=== PATIENT | male | born 1960 | race African-American/Black ===

== ENCOUNTER → 2017-04-17 15:22 | Outpatient (CLI) | payer MEDICARE ==
[2014-09-16 14:19] VITALS: BMI 21.1
[~2017-04-17 15:22] MED LIST: AMOXICILLIN500 M1 PO; BACLOFEN10 MG PO; BIAXIN 500 MG500 MG PO; COUMADIN10 MG PO; ELIQUIS2.5 MG PO; HYDROCHLOROTH12.5 M1 PO; HYDROCODONE-APA1 TAB PO; K-DUR20 MEQ PO; KLONOPIN1 MG PO; NORCO 10/325 TA1 TA1 PO; PERCOCET 10/3251 TA1 PO; PRADAXA150 MG PO; PROTONIX40 MG PO; REPREXAIN 10-21 EACH PO; SOMA350 MG PO; SYMBICORT 16010.2 GM INH; XANAX1 MG PO; ZESTORETIC 10/11 TAB PO
== END | disposition home or self-care (01) ==
LOC: D.MRI 04-10 11:00
DX: M25.562 Pain in left knee (principal)

== ENCOUNTER → 2017-04-25 16:23 | Outpatient (CLI) | payer MEDICARE ==
[2014-09-16 14:19] VITALS: BMI 21.1
== END | disposition home or self-care (01) ==
LOC: D.LABREF 16:23
DX: M87.9 Osteonecrosis, unspecified (principal); Z11.8 Encounter for screening for other infectious and parasitic diseases

== ENCOUNTER 2017-04-30 08:30 | Inpatient (IN) | payer MEDICARE ==
[~2017-04-30] VITALS: Ht 188 cm; Wt 75.0 kg
[~2017-04-30 08:30] MED LIST changes: -KLONOPIN1 MG PO
[2017-05-01 11:24] LABS: HEMATOCRIT 40.8 % (42.0-54.0); HEMOGLOBIN 13.8 g/dL (13.5-17.5); MCH 31.4 pg (26.0-34.0); MCHC 33.8 g/dL (31.0-37.0); MCV 92.7 fL (80.0-100.0); MEAN PLATELET VOLUME 10.7 fL (7.4-10.4); RDW 14.6 % (11.5-14.5); WBC 3.4 10x3/uL (4.8-10.8)
[2017-05-01 11:29] LABS: PLATELET COUNT 80 10x3/uL (130-400)
[2017-05-01 11:34] LABS: CALC OSMOLALITY 276 mosm/kg (275-300); CALCIUM 8.9 mg/dL (8.5-10.1); CARBON DIOXIDE 27.8 mmol/L (21.0-32.0); CHLORIDE - SERUM 105 mmol/L (98-107); SODIUM 140 mmol/L (136-145); UREA NITROGEN 7 mg/dL (7-18); eGFR NON AFRICAN AMERICAN 82 mL/min (90-120)
[2017-05-01 11:38] LABS: APTT 35.2 SECONDS (22.8-39.4); GLUCOSE 100 mg/dL (74-106); INR 1.15 (0.85-1.17); PROTIME 14.3 SECONDS (11.6-15.0)
[2017-05-01 12:15] LABS: APPEARANCE SLT CLOUDY (CLEAR); BACTERIA MANY /hpf (NONE SEEN); BILIRUBIN NEGATIVE (NEGATIVE); COLOR YELLOW (YELLOW); EPITHELIAL CELLS 0-5 /hpf (0-5); GLUCOSE 250 mg/dL (NEGATIVE); KETONE NEGATIVE (NEGATIVE); MUCUS <1+ /lpf (NONE SEEN); NITRITE POSITIVE (NEGATIVE); PROTEIN NEGATIVE (NEGATIVE); SPECIFIC GRAVITY 1.015 (1.005-1.020); UROBILINOGEN NORMAL (NORMAL); WHITE CELLS - URINE 0-5 /hpf (0-5)
[2017-05-01 12:36] LABS: EOSINOPHILS 1 % (0-7); LYMPHOCYTES 53 % (15-50); MONOCYTES 8 % (2-11); NEUTROPHILS 38 % (40-80); PLATELET ESTIMATE DECREASED
[2017-05-06] MEDS ORDERED: KLONOPIN1 MG PO (12:38)
[2017-05-06 12:44] VITALS: BP 109/66; BMI 21.2
[2017-05-06 13:30] LABS: APPEARANCE HAZY (CLEAR); BILIRUBIN NEGATIVE (NEGATIVE); COLOR DK YELLOW (YELLOW); GLUCOSE NEGATIVE (NEGATIVE); KETONE NEGATIVE (NEGATIVE); NITRITE NEGATIVE (NEGATIVE); PROTEIN NEGATIVE (NEGATIVE); UROBILINOGEN NORMAL (NORMAL)
[2017-05-06 13:31] LABS: WHITE CELLS - URINE 0-5 /hpf (0-5)
[2017-05-06 13:32] LABS: BACTERIA FEW /hpf (NONE SEEN); MUCUS >1+ /lpf (NONE SEEN); RED CELLS - URINE OCC /hpf (0-5)
[2017-05-06 19:20] VITALS: BP 162/96
--- NOTE | 2017-05-06 19:38 | NUR ---
RECIEVED PATIENT FROM RECOVERY. PATIENT IS AWAKE, ALERT AND ORIENTED X'S 4. RESPIRATIONS ARE EVEN AND UNLABORED ON ROOM AIR. NO SIGNS OF DISTRESS NOTED. DAUGHTER LEFT TO GO GET PATIENT SOMETHING TO EAT. BROUGHT PATIENT A WARM BLANKET PER HIS AND HIS DAUGHTERS REQUEST. PATIENT HAS CALL LIGHT IN HIS HAND. ASSESSED LEFT KNEE, DRESSING CLEAN, DRY AND INTACT. PALPATED LEFT PEDAL PULSE, +2. LEFT FOOT IS WARM AND DRY, CAPILLARY REFILL <3 SECONDS. HE DENIES OTHER NEEDS AT THIS TIME. BED IN LOWEST POSITION, BED RAILS UP X'S 2.
[2017-05-07 02:11] VITALS: Ht 188 cm; Wt 75.0 kg
[2017-05-07 04:00] VITALS: BP 126/73
[2017-05-07 07:10] VITALS: BP 147/87
[2017-05-07 07:48] LABS: HEMATOCRIT 30.9 % (42.0-54.0); HEMOGLOBIN 10.2 g/dL (13.5-17.5); MCV 93.9 fL (80.0-100.0); MEAN PLATELET VOLUME 10.6 fL (7.4-10.4); RBC 3.29 10x6/uL (4.20-6.10); RDW 13.7 % (11.5-14.5); WBC 4.4 10x3/uL (4.8-10.8)
[2017-05-07 10:58] VITALS: BP 138/80
[2017-05-07 15:01] VITALS: BP 148/86
--- NOTE | 2017-05-07 15:28 | NUR ---
* Is the patient Alert and Oriented? Yes 0 * How many steps to enter\exit or inside your home? 1 0 * PCP Dr. Rene Carnes 0 * [facility]acy [place] 0 * Preadmission Environment Home with Family 0 * Partial ADLs (Assistance needed) Ambulation 0 * Equipment Cane Crutch Other 0 * Other Equipment Electric Scooter 0 * List name and contact numbers for known caregivers / representatives who currently or will assist patient after discharge: Nomanienchance - Lois [phone] 0 * Additional services required to return to the preadmission environment? Yes 0 * Can the patient safely return to the preadmission environment? Yes 0 * Has this patient been hospitalized within the prior 30 days at any hospital? No Patient Name: MELITON HA Admission Status: Elective Accout number: [id number] Admission Date: 05-06-2017 : 1960 Admission Diagnosis: Attending: NATALY YEE Current LOS: 1 Anticipated DC Date: 05-08-2017 Planned Disposition: Home with Home Health Primary Insurance: MEDICARE A & B Discharge Planning Comments: CM met with patient to assess dc plans/needs. Patient states he lives with his girlfriend, Lois. He reports he uses a walker for ambulation. He states he also has a cane, crutches and electric scooter but scooter needs a battery. He has had home health services in the past but is unable to recall agency. He requests home health for physical therapy, stating he does not have anyone who can drive him for outpatient PT. KO signed for [facility]. Anticipate DC tomorrow afternoon. CM will follow. Riding Teacher: Iris Lofton
[2017-05-07 20:00] VITALS: BP 119/78
--- NOTE | 2017-05-07 22:14 | NUR ---
REC'D LYING IN BED. ALERT AND ORIENTED X4. DENIED PAIN AT THIS TIME. NO DISTRESS NOTED INSTRUCTED TO CALL IF NEEDED ANYTHING, VERBALIZED UNDERSTANDING. DENIED FURTHER NEEDS. BED LOW, LOCKED CALL LIGHT IN REACH. WILL CONT TO MONITOR.
--- NOTE | 2017-05-08 00:40 | NUR ---
EYES CLOSED RESPIRAIONS WITH EASE AND UNLABORED. SR UP X2 CALL LIGHT WITHIN REACH.
[2017-05-08 04:00] VITALS: BP 111/68
--- NOTE | 2017-05-08 07:20 | NUR ---
REPORT RECEIVED, ASSUMED CARE OF PT. RESTING, EASILY AROUSED. R FOREARM IV INFUSING FLUIDS ORDERED. NO NEEDS VOICED AT THIS TIME. BED IN LOWEST POSITION, SIDE RAILS UP X 2, CALL LIGHT WITHIN REACH.
[2017-05-08] MEDS ORDERED: ELIQUIS2.5 MG PO (07:50)
[2017-05-08] MEDS ORDERED: HYDROCODONE-APA1 TAB PO (07:51)
[2017-05-08 08:08] VITALS: BP 110/76
--- NOTE | 2017-05-08 09:36 | NUR ---
PATIENT BEING DISCHARGE HOME TODAY, INFORMATION FAXED TO [facility] AND ORDER FAXED FOR CPM TO [facility]. YESENIA WILL DELIVER TO HOME AND SET UP. PATIENT HAS WALKER. FAMILY TO DRIVE HOME. CM TO FOLLOW AND ASSIST NEEDED.
--- NOTE | 2017-05-08 10:44 | NUR ---
R FOREARM IV D/C'D AT THIS TIME, CATHETER INTACT, BLEED CONTROL, BANDAGE APPLIED. DISCHARGE INSTRUCTIONS GIVEN TO PT, VERBALIZED UNDERSTANDING AND SIGNED. WRITTEN RX FOR ELIQUIS AND NORCO GIVEN, COUPON FOR ELIQUIS PROVIDED. ALL QUESTIONS ANSWERED AT THIS TIME.
--- NOTE | 2017-05-08 11:17 | NUR ---
PT DISCHARGED FROM FACILITY VIA WHEELCHAIR TO FAMILY VEHICLE.
== END 2017-05-08 11:18 | disposition home health service (06) | DRG 470 ==
LOC: D.MS 05-06 05:00 → D.SDCHOLD 05-06 05:00 → D.MS 05-06 19:03
PROVIDERS: ADMIT Orthopaedic Surgery
PROC: 0SRD0JZ Replacement of Left Knee Joint with Synthetic Substitute, Open Approach (ICD-10-PCS; principal; 2017-05-06 13:30)
DX: M87.862 Other osteonecrosis, left tibia (principal); I10 Essential (primary) hypertension; Z86.718 Personal history of other venous thrombosis and embolism; Z86.711 Personal history of pulmonary embolism; F17.200 Nicotine dependence, unspecified, uncomplicated

== ENCOUNTER 2017-05-16 23:30 | Emergency (ER) | payer MEDICARE ==
[2017-05-07 02:11] VITALS: BMI 21.2
[~2017-05-16 23:30] MED LIST changes: +KLONOPIN1 MG PO
[2017-05-17 00:12] LABS: BASOPHILS 0.7 % (0-2); HEMATOCRIT 30.9 % (42.0-54.0); HEMOGLOBIN 10.2 g/dL (13.5-17.5); IMMATURE GRANULOCYTES 0.5 % (0-5); LYMPHOCYTES 41.6 % (15-50); MCH 31.3 pg (26.0-34.0); MCV 94.8 fL (80.0-100.0); MEAN PLATELET VOLUME 10.1 fL (7.4-10.4); NEUTROPHILS 47.2 % (40-80); RBC 3.26 10x6/uL (4.20-6.10); RDW 14.3 % (11.5-14.5); WBC 5.8 10x3/uL (4.8-10.8)
[2017-05-17 00:13] LABS: PLATELET COUNT 327 10x3/uL (130-400)
[2017-05-17 00:27] LABS: APTT 38.5 SECONDS (22.8-39.4); INR 0.96 (0.85-1.17); PROTIME 12.4 SECONDS (11.6-15.0)
[2017-05-17 00:29] LABS: ALBUMIN 2.8 g/dL (3.4-5.0); ALKALINE PHOSPHATASE 86 U/L (46-116); ALT (SGPT) 21 U/L (10-68); CALC OSMOLALITY 275 mosm/kg (275-300); CALCIUM 9.7 mg/dL (8.5-10.1); CARBON DIOXIDE 22.2 mmol/L (21.0-32.0); CHLORIDE - SERUM 101 mmol/L (98-107); GLUCOSE 117 mg/dL (74-106); POTASSIUM - SERUM 3.7 mmol/L (3.5-5.1); PROTEIN - SERUM 7.7 g/dL (6.4-8.2); SODIUM 139 mmol/L (136-145); UREA NITROGEN 5 mg/dL (7-18); eGFR NON AFRICAN AMERICAN 82 mL/min (90-120)
[2017-05-17 00:37] LABS: AMYLASE - SERUM 116 U/L (25-115); CKMB 0.2 U/L (0.0-3.6); CREATINE KINASE 59 UL (21-232); LIPASE 371 U/L (73-393); TROPONIN-I < 0.017 ng/mL (0.000-0.060)
[2017-05-17 00:42] LABS: D-DIMER-QUANTITATIVE 4.85 ug/mLFEU (0.20-0.54)
== END 2017-05-17 02:10 | disposition home or self-care (01) ==
LOC: D.ER 23:30
PROVIDERS: Family Medicine
DX: R06.00 Dyspnea, unspecified (principal); F41.9 Anxiety disorder, unspecified; I10 Essential (primary) hypertension; J44.9 Chronic obstructive pulmonary disease, unspecified

== ENCOUNTER → 2017-09-09 12:23 | Outpatient (CLI) | payer MEDICARE ==
[2017-05-07 02:11] VITALS: BMI 21.2
== END | disposition home or self-care (01) ==
LOC: D.SP 08-16 11:00
DX: M16.11 Unilateral primary osteoarthritis, right hip (principal); Z53.9 Procedure and treatment not carried out, unspecified reason

== ENCOUNTER → 2017-09-30 08:21 | Outpatient (CLI) | payer MEDICARE ==
[2017-05-07 02:11] VITALS: BMI 21.2
== END | disposition home or self-care (01) ==
LOC: D.RAD 08:00 → D.SP 08:00
DX: M25.551 Pain in right hip (principal); Z01.810 Encounter for preprocedural cardiovascular examination; Z01.812 Encounter for preprocedural laboratory examination; Z53.9 Procedure and treatment not carried out, unspecified reason

== ENCOUNTER → 2017-10-24 13:25 | Outpatient (CLI) | payer MEDICARE ==
[2017-05-07 02:11] VITALS: BMI 21.2
[~2017-10-24 13:25] MED LIST changes: +OCUFLOX 0.3 % OP5 ML LEFT EYE
== END | disposition home or self-care (01) ==
LOC: D.US 10-21 13:30
DX: M79.605 Pain in left leg (principal)

== ENCOUNTER 2017-10-26 18:23 | Emergency (ER) | payer MEDICARE ==
[~2017-10-26] VITALS: Ht 188 cm; Wt 711.4 kg
[~2017-10-26 18:23] MED LIST changes: -OCUFLOX 0.3 % OP5 ML LEFT EYE
[2017-10-26 18:29] VITALS: Ht 188 cm; Wt 711.4 kg
[2017-10-26] MEDS ORDERED: OCUFLOX 0.3 % OP5 ML LEFT EYE (19:06)
[2017-10-26 19:41] VITALS: BP 135/85
== END 2017-10-26 19:41 | disposition home or self-care (01) ==
LOC: D.ER 18:23
DX: H15.89 Other disorders of sclera (principal); S05.01XA Injury of conjunctiva and corneal abrasion without foreign body, right eye, initial encounter; W26.8XXA Contact with other sharp object(s), not elsewhere classified, initial encounter; Y93.89 Activity, other specified; Y92.019 Unspecified place in single-family (private) house as the place of occurrence of the external cause; I10 Essential (primary) hypertension; R05 Cough; F17.200 Nicotine dependence, unspecified, uncomplicated

== ENCOUNTER → 2017-10-30 08:06 | Outpatient (CLI) | payer MEDICARE ==
[2017-10-26 18:29] VITALS: BMI 201.4
[~2017-10-30 08:06] MED LIST changes: +OCUFLOX 0.3 % OP5 ML LEFT EYE
== END | disposition home or self-care (01) ==
LOC: D.CT 08:06
DX: I73.9 Peripheral vascular disease, unspecified (principal)

== ENCOUNTER → 2017-11-19 09:57 | Outpatient (CLI) | payer MEDICARE ==
[2017-10-26 18:29] VITALS: BMI 201.4
[~2017-11-19 09:57] MED LIST changes: +PROAIR HFA8.5 GM INH; +STERAPRED DS 1210 MG PO; +ZPAK PO
== END | disposition home or self-care (01) ==
LOC: D.US 09:57
DX: I73.9 Peripheral vascular disease, unspecified (principal); M79.605 Pain in left leg; R10.9 Unspecified abdominal pain

== ENCOUNTER 2017-12-17 05:20 | Outpatient (CLI) | payer MEDICARE ==
[~2017-12-17] VITALS: Ht 188 cm; Wt 72.7 kg
--- NOTE | ~2017-12-17 | HEMODYNAMI ---
PATIENT:MELITON HA MEDICAL RECORD: [id number] : 64 LOCATION:[facility] ADMISSION DATE: 12/17/17 Generatedon:12/17/20179:04 Patient name: MELITON HA Patient #: [id number] SSN: : 1960 Date of study: 12/17/2017 Page: Of Hemodynamic Procedure Report Patient Data Patient Demographics Procedure consent was obtained First Name: MELITON Gender: Male Last Name: LELAND Suffix: [facility] Initial: RIYA : 1960 Patient #: [id number] Age: 57 year(s) Race: Black Additional ID: [id number] Contact details [address]: [address] [place] [address] State: [place] City: [place] Zip code: [address] Past Medical History Allergies Allergen Reaction Date Comments Reported Morphine 12/17/2017 Admission Admission Data Admission Date: 12/17/2017 Admission Time: 5:20 Procedure Procedure Types Cath Procedure Peripheral Cath Diagnostic Procedure Venography IVC/SVC IVC Filter Retreival Procedure Description Procedure Date Procedure Date: 12/17/2017 Procedure Start Time: 8:10 Procedure Staff Name Function Erik Robin MD Performing Physician Stanton Kothari RT Monitor Neela Byrne RT Scrub Kenia Harden RN Nurse Alison Bennett RN Nurse Procedure Data Cath Procedure Fluoroscopy Diagnostic fluoroscopy Total fluoroscopy Time: time: 17.2 min 17.2 min Diagnostic fluoroscopy Total fluoroscopy dose: 272 dose: 272 mGy mGy Procedure Medications Medication Administration Route Dosage Oxygen etCO2 Nasal cannula 4 l/min Lidocaine 1% added to field 20 Heparin Flush Bag added to field 3 bags (1000units/500ml NS) Fentanyl I.V. 50 mcg Versed I.V. 1 mg Fentanyl I.V. 50 mcg Versed I.V. 1 mg Hemodynamics Rest Heart Rate: 71 (bpm) Snapshots Pre Cath Intra NCS Post Cath Vital Signs Time Heart Resp SPO2 etCO2 NIBP (mmHg) Rhythm Pain Sedation Rate (ipm) (%) (mmHg) Status Level (bpm) 7:58:52 64 18 99 28.5 117/75(95) NSR 0 (11) 10(A) , No pain 8:03:03 74 15 100 26.2 117/79(97) NSR 0 (11) 10(A) , No pain 8:07:15 73 17 100 27.7 118/76(100) NSR 0 (11) 10(A) , No pain 8:11:27 70 17 100 29.2 118/79(98) NSR 0 (11) 10(A) , No pain 8:15:35 73 16 97 24 107/76(88) NSR 0 (11) 10(A) , No pain 8:19:45 71 17 97 30.8 108/70(84) NSR 0 (11) 10(A) , No pain 8:23:55 70 18 100 29.2 105/72(85) NSR 0 (11) 10(A) , No pain 8:28:03 73 18 100 29.2 106/73(82) NSR 0 (11) 10(A) , No pain 8:32:13 77 16 100 27.7 110/72(85) NSR 0 (11) 10(A) , No pain 8:36:25 80 18 100 27 114/72(88) NSR 0 (11) 10(A) , No pain 8:40:38 72 17 99 31.5 115/73(91) NSR 0 (11) 10(A) , No pain 8:44:53 74 16 99 30 116/71(93) NSR 0 (11) 10(A) , No pain 8:49:07 76 15 100 30 118/76(98) NSR 0 (11) 10(A) , No pain 8:53:21 71 17 100 32.3 124/76(99) NSR 0 (11) 10(A) , No pain 8:57:30 70 17 100 33 119/78(93) NSR 0 (11) 10(A) , No pain 9:01:42 72 17 100 30.8 120/76(101) NSR 0 (11) 10(A) , No pain Medications Time Medication Route Dose Verified Delivered Reason Notes Effect iveness by by 8:00:58 Oxygen etCO2 4 Erik Schulz Nasal l/min Sharda Bennett RN protocol cannula 8:01:13 Lidocaine 1% added 20ml Erik Valencia Per to vial Robin Robin protocol field MD BENAVIDES 8:01:35 Heparin Flush added 3bags Erik Schulz Bag to Robni Robin protocol (1000units/500ml field MD BENAVIDES NS) 8:12:57 Fentanyl I.V. 50 Erik Aquino for mcg Robintrudy Harden RN sedation 8:13:10 Versed I.V. 1 mg Erik Aquino for Robin Dereck RN sedation 8:29:50 Fentanyl I.V. 50 Erik Broderickody for mcg Robintrudy Harden RN sedation 8:29:58 Versed I.V. 1 mg Erik Broderickody for Robin Dereck RN sedation Procedure Log Time Note 7:48:34 Alison Bennett RN sent for patient. Start room use. 7:48:45 Time tracking: Regular hours (M-F 7:00 - 5:00) 7:48:51 Plan of Care:Hemodynamics will remain stable., Cardiac rhythm will remain stable., Comfort level will be maintained., Respiratory function will remain adequate., Patient/ family verbilizes understanding of procedure., Procedure tolerated without complication., Recovers from procedure without complications.. 7:48:58 Patient received from Outpatients to IR Alert and oriented. Tansferred to table in Supine position. 7:48:59 Correct patient and procedure confirmed by team. 7:49:00 Correct patient and procedure confirmed by team. 7:49:02 Signed procedure consent form obtained from patient. 7:49:03 ECG and BP/O2 sat monitors applied to patient. 7:49:04 Full Disclosure recording started 7:49:05 7:49:08 H&P Date Dictated: 12/17/2017 H&P Addendum completed by physician on day of procedure. (MUST COMPLETE FOR ALL OUTPATIENTS). 7:49:09 Pre-procedure instructions explained to patient. 7:49:10 Pre-op teaching completed and patient verbalized understanding. 7:49:11 Family in waiting room. 7:49:12 Patient NPO since Midnight. 7:49:15 Is the patient allergic to Iodine/contrast media? No. 7:49:36 Patient diabetic? No. 7:49:37 7:49:38 ----Pre-sedation anethsthesia assessment.---- 7:49:41 Previous problem with sedation/anesthesia? No ? 7:49:45 Snore? No 7:49:47 Sleep apnea? No 7:49:49 Deviated septum? No 7:49:51 Opens mouth fully? Yes 7:49:53 Sticks out tongue? Yes 7:49:55 Airway obstruction? No ? 7:49:59 Dentures? No ? 7:49:59 7:50:06 IV patent on arrival in right forearm with 0.9% NaCl at KVO. 7:50:13 Patient pain scale 0/10 no pain. 7:50:32 Patient allergic to Morphine 7:50:38 Alarms reviewed by R. N. 7:50:39 Sharps counted by scrub and verified by R.N. 7:50:47 Right neck area was prepped with chlora-prep and draped in sterile fashion 7:51:22 Use device set IR Diagnostic 7:51:25 Tegaderm 4 x 4 ([id number]) opened to sterile field. 7:51:25 Sterile Angiographic Pack opened to sterile field. 7:51:26 Bag Decanter () opened to sterile field. 7:57:56 Vital chart was started 7:59:30 Is patient on blood thinner?Yes 7:59:39 ACC The patient was administered the following blood thiners within the last 24 hours: Eliquis 8:00:58 Oxygen 4 l/min etCO2 Nasal cannula was administered by Alison Bennett RN; Per protocol; 8:01:13 Lidocaine 1% 20ml vial added to field was administered by Erik Robin MD; Per protocol; 8:01:35 Heparin Flush Bag (1000units/500ml NS) 3bags added to field was administered by Erik Robin MD; Per protocol; 8:02:01 Baseline sample Acquired. 8:02:05 Baseline sample Acquired. 8:09:43 Physician arrived 8::43 --------ALL STOP TIME OUT------ 8:09:44 Final Timeout: patient, procedure, and site verified with staff and physician. All members of the team are in agreement. 8:09:47 Right neck site verified by team. 8:09:55 Sedation plan: IV Moderate Sedation Medication:Versed, Fentanyl 8:10:07 Procedure started. 8:10:13 Local anesthetic to right IJ vein with Lidocaine 1% by Erik Robin MD.INITIAL ACCESS ONLY 8:12:30 SNARE Filter Retreival Kit (SRK20) opened to sterile field. 8:12:31 PERCUTANEOUS ENTRY 19GA needle opened to sterile field. 8:12:32 DOC .035 wire ([id number]) opened to sterile field. 8:12:57 Fentanyl 50 mcg I.V. was administered by Kenia Harden RN; for sedation; 8:13:10 Versed 1 mg I.V. was administered by Kenia Harden RN; for sedation; 8:13:37 DILATOR, VESSEL 8/20 opened to sterile field. 8:16:23 Corado 180 wire ([id number]) opened to sterile field. 8:29:50 Fentanyl 50 mcg I.V. was administered by Kenia Harden RN; for sedation; 8:29:58 Versed 1 mg I.V. was administered by Kenia Harden RN; for sedation; 8:51:15 Procedure ended.(Physican Out) 8:51:40 Fluoroscopy time 17.20 minutes. 8:51:45 Fluoroscopy dose: 272 mGy 8:51:45 Flurop Dose total: 272 8:51:50 Sharps counted by scrub and verified by R.N. 8:51:54 Insertion/operative site no bleeding no hematoma. 8:51:58 Post-op/insertion site Right Jugular vein dressed using a 4 x 4 and Tegaderm. 8:52:02 Post right IJ vein:stable 8:52:08 Post procedure instruction explained to patient.Patient verbalizes understanding. 8:52:08 Procedure and supply charges have been captured, reviewed, submitted and are correct. 9:03:29 Report given to Outpatients. 9:03:36 Patient transfered to Outpatients with Stretcher. 9:04:08 Vital chart was stopped Device Usage Item Name Manufacture Quantity Catalog Hospital Part Current Minimal Lot# / Number Charge Number Stock Stock Serial# Code Tegaderm 4 x 3M 1 1626W [id number] 4 (1626W) Sterile Cardinal 1 [id number] 383689 934018 5 Angiographic Health Pack Bag Decanter Microtek 1 2001S [id number] 89605 [id number] 5 (2001S) Medical Inc[employer] SNARE Filter Bard 1 SRK20 656496 709455 5 Retreival Kit (SRK20) PERCUTANEOUS [employer] 1 [id number] 410551 [id number] 5 [id number] ENTRY 19GA needle DOC .035 [employer] 1 [id number] 123324 956452 5 wire ([id number]) DILATOR, [employer] 1 D40079 205029 16874 568859 5 VESSEL 8/20 Corado 180 Cook [facility] 1 A20644 705598 376981 [id number] 5 [id number] wire (Q31933) Signature Audit [place] Stage Time Signature Unsigned Intra-Procedure 12/17/2017 Stanton 9:04:05 AM Saniya RT (R) (CV) Signatures Monitor : Stanton Signature : Saniya RT Date : Time : [facility] [address] [place] [address]
[~2017-12-17 05:20] MED LIST changes: -PROAIR HFA8.5 GM INH; -STERAPRED DS 1210 MG PO; -ZPAK PO
[2017-12-17 05:46] LABS: BASOPHILS 0.4 % (0-2); EOSINOPHILS 1.3 % (0-7); HEMATOCRIT 37.2 % (42.0-54.0); HEMOGLOBIN 13.1 g/dL (13.5-17.5); IMMATURE GRANULOCYTES 0.1 % (0-5); MCH 32.7 pg (26.0-34.0); MCHC 35.2 g/dL (31.0-37.0); MCV 92.8 fL (80.0-100.0); MEAN PLATELET VOLUME 10.1 fL (7.4-10.4); MONOCYTES 4.8 % (2-11); NEUTROPHILS 27.4 % (40-80); RBC 4.01 10x6/uL (4.20-6.10); RDW 14.3 % (11.5-14.5); WBC 6.7 10x3/uL (4.8-10.8)
[2017-12-17 05:51] LABS: PLATELET COUNT 122 10x3/uL (130-400)
[2017-12-17 06:07] LABS: CALC OSMOLALITY 269 mosm/kg (275-300); CALCIUM 8.7 mg/dL (8.5-10.1); CARBON DIOXIDE 26.8 mmol/L (21.0-32.0); CHLORIDE - SERUM 103 mmol/L (98-107); CREATININE - SERUM 0.9 mg/dL (0.6-1.3); GLUCOSE 108 mg/dL (74-106); POTASSIUM - SERUM 3.9 mmol/L (3.5-5.1); SODIUM 136 mmol/L (136-145); UREA NITROGEN 5 mg/dL (7-18); eGFR NON AFRICAN AMERICAN > 90 mL/min (90-120)
[2017-12-17 06:12] LABS: APTT 34.2 SECONDS (22.8-39.4)
[2017-12-17 06:13] LABS: INR 1.13 (0.85-1.17); PROTIME 14.1 SECONDS (11.6-15.0)
[2017-12-17 06:59] VITALS: BP 111/77; Ht 188 cm; Wt 72.7 kg
== END 2017-12-17 13:23 | disposition home or self-care (01) ==
LOC: D.SP 05:20
PROVIDERS: Specialist
DX: Z45.89 Encounter for adjustment and management of other implanted devices (principal); Z86.718 Personal history of other venous thrombosis and embolism

== ENCOUNTER 2018-01-23 11:31 | Emergency (ER) | payer MEDICARE ==
[~2018-01-23] VITALS: Ht 188 cm; Wt 72.7 kg
[2018-01-23 11:37] VITALS: Ht 188 cm; Wt 72.7 kg
[2018-01-23 12:39] LABS: HEMATOCRIT 39.5 % (42.0-54.0); HEMOGLOBIN 14.3 g/dL (13.5-17.5); MCH 32.3 pg (26.0-34.0); MCHC 36.2 g/dL (31.0-37.0); MCV 89.2 fL (80.0-100.0); MEAN PLATELET VOLUME 10.9 fL (7.4-10.4); PLATELET COUNT 129 10x3/uL (130-400); RBC 4.43 10x6/uL (4.20-6.10); RDW 14.5 % (11.5-14.5)
[2018-01-23 12:53] LABS: ALBUMIN 3.4 g/dL (3.4-5.0); ALKALINE PHOSPHATASE 86 U/L (46-116); ALT (SGPT) 50 U/L (10-68); BILIRUBIN - TOTAL 0.83 mg/dL (0.2-1.3); CALC OSMOLALITY 274 mosm/kg (275-300); CALCIUM 8.7 mg/dL (8.5-10.1); CARBON DIOXIDE 24.8 mmol/L (21.0-32.0); CHLORIDE - SERUM 96 mmol/L (98-107); POTASSIUM - SERUM 3.4 mmol/L (3.5-5.1); SODIUM 134 mmol/L (136-145); UREA NITROGEN 14 mg/dL (7-18); eGFR NON AFRICAN AMERICAN 82 mL/min (90-120)
[2018-01-23 12:54] LABS: GLUCOSE 199 mg/dL (74-106)
[2018-01-23 12:55] LABS: UDS - AMPHET NEGATIVE QUAL (NEGATIVE); UDS - BARB NEGATIVE QUAL (NEGATIVE); UDS - BENZO NEGATIVE QUAL (NEGATIVE); UDS - COCAINE POSITIVE QUAL (NEGATIVE); UDS - OPIATE NEGATIVE QUAL (NEGATIVE); UDS - PCP NEGATIVE QUAL (NEGATIVE); UDS - THC POSITIVE QUAL (NEGATIVE)
[2018-01-23 13:05] LABS: CKMB 1.4 U/L (0.0-3.6); CREATINE KINASE 262 UL (21-232)
[2018-01-23 13:06] LABS: TROPONIN-I < 0.017 ng/mL (0.000-0.060)
[2018-01-23 13:18] LABS: APPEARANCE SL CLDY (CLEAR); BACTERIA MANY /hpf (NONE SEEN); BILIRUBIN NEGATIVE (NEGATIVE); COLOR YELLOW (YELLOW); GLUCOSE NEGATIVE (NEGATIVE); KETONE NEGATIVE (NEGATIVE); NITRITE NEGATIVE (NEGATIVE); PROTEIN NEGATIVE (NEGATIVE); SPECIFIC GRAVITY 1.015 (1.005-1.020); UROBILINOGEN NORMAL (NORMAL); WHITE CELLS - URINE 0-5 /hpf (0-5)
[2018-01-23 14:01] LABS: EPITHELIAL CELLS 0-5 /hpf (0-5)
[2018-01-23 15:01] LABS: ANISOCYTOSIS OCC; LYMPHOCYTES 50 % (15-50); MONOCYTES 10 % (2-11); NEUTROPHILS 40 % (40-80); PLATELET ESTIMATE NORMAL
[2018-01-23] MEDS ORDERED: ZPAK PO (16:31)
[2018-01-23] MEDS ORDERED: PROAIR HFA8.5 GM INH (16:31)
[2018-01-23] MEDS ORDERED: STERAPRED DS 1210 MG PO (16:31)
[2018-01-23 17:29] VITALS: BP 102/68
== END 2018-01-23 17:00 | disposition home or self-care (01) ==
LOC: D.ER 11:31
PROVIDERS: Family Medicine
DX: J20.9 Acute bronchitis, unspecified (principal); R07.9 Chest pain, unspecified; J44.1 Chronic obstructive pulmonary disease with (acute) exacerbation; F19.10 Other psychoactive substance abuse, uncomplicated; R11.10 Vomiting, unspecified; I10 Essential (primary) hypertension; Z86.711 Personal history of pulmonary embolism; Z86.718 Personal history of other venous thrombosis and embolism; F17.200 Nicotine dependence, unspecified, uncomplicated; Z79.01 Long term (current) use of anticoagulants

== ENCOUNTER → 2018-01-24 06:12 | Outpatient (CLI) | payer MEDICARE ==
[2018-01-23 11:37] VITALS: BMI 20.5
[~2018-01-24 06:12] MED LIST changes: +PROAIR HFA8.5 GM INH; +STERAPRED DS 1210 MG PO; +ZPAK PO
== END | disposition home or self-care (01) ==
LOC: D.MRI 06:12
DX: M54.16 Radiculopathy, lumbar region (principal)

== ENCOUNTER 2018-02-05 15:37 | Emergency (ER) | payer MEDICARE ==
[~2018-02-05] VITALS: Ht 188 cm; Wt 70.5 kg
[2018-02-05 15:40] VITALS: Ht 188 cm; Wt 70.5 kg
[2018-02-05 16:52] VITALS: BP 126/84
== END 2018-02-05 16:53 | disposition home or self-care (01) ==
LOC: D.ER 15:37
DX: F41.0 Panic disorder [episodic paroxysmal anxiety] (principal); I10 Essential (primary) hypertension; Z86.718 Personal history of other venous thrombosis and embolism; Z86.711 Personal history of pulmonary embolism; K21.9 Gastro-esophageal reflux disease without esophagitis; F17.200 Nicotine dependence, unspecified, uncomplicated

== ENCOUNTER 2018-06-14 15:09 | Emergency (ER) | payer MEDICARE ==
[~2018-06-14] VITALS: Ht 188 cm; Wt 75.0 kg
[2018-06-14 15:13] VITALS: Ht 188 cm; Wt 75.0 kg
[2018-06-14 16:17] VITALS: BP 118/78
== END 2018-06-14 16:17 | disposition home or self-care (01) ==
LOC: D.ER 15:09
DX: R55 Syncope and collapse (principal); F41.0 Panic disorder [episodic paroxysmal anxiety]; F17.200 Nicotine dependence, unspecified, uncomplicated

== ENCOUNTER 2018-09-25 19:38 | Emergency (ER) | payer MEDICARE ==
[~2018-09-25] VITALS: Ht 188 cm; Wt 76.8 kg
[2018-09-25 20:17] VITALS: BP 103/74; Ht 188 cm; Wt 76.8 kg
== END 2018-09-25 22:00 | disposition left against medical advice (07) ==
LOC: D.ER 19:38
DX: F41.0 Panic disorder [episodic paroxysmal anxiety] (principal)

== ENCOUNTER 2018-10-10 00:13 | Emergency (ER) | payer MEDICARE ==
[~2018-10-10] VITALS: Ht 188 cm; Wt 72.7 kg
[2018-10-10 00:21] VITALS: Ht 188 cm; Wt 72.7 kg
[2018-10-10 00:59] LABS: BASOPHILS 0.6 % (0-2); EOSINOPHILS 0.6 % (0-7); HEMATOCRIT 31.6 % (42.0-54.0); LYMPHOCYTES 54.7 % (15-50); MCH 31.2 pg (26.0-34.0); MCHC 34.8 g/dL (31.0-37.0); MCV 89.5 fL (80.0-100.0); MEAN PLATELET VOLUME 10.9 fL (7.4-10.4); MONOCYTES 8.3 % (2-11); NEUTROPHILS 35.8 % (40-80); PLATELET COUNT 102 10x3/uL (130-400); RBC 3.53 10x6/uL (4.20-6.10); RDW 16.7 % (11.5-14.5); WBC 3.3 10x3/uL (4.8-10.8)
[2018-10-10 01:09] LABS: INR 1.26 (0.85-1.17); PROTIME 15.2 SECONDS (11.6-15.0)
[2018-10-10 01:14] LABS: ALKALINE PHOSPHATASE 98 U/L (46-116); ALT (SGPT) 47 U/L (10-68); BILIRUBIN - TOTAL 0.55 mg/dL (0.2-1.3); CALC OSMOLALITY 273 mosm/kg (275-300); CALCIUM 8.1 mg/dL (8.5-10.1); CARBON DIOXIDE 23.1 mmol/L (21.0-32.0); CHLORIDE - SERUM 104 mmol/L (98-107); GLUCOSE 97 mg/dL (74-106); POTASSIUM - SERUM 3.6 mmol/L (3.5-5.1); PROTEIN - SERUM 6.7 g/dL (6.4-8.2); SODIUM 138 mmol/L (136-145); UREA NITROGEN 8 mg/dL (7-18); eGFR NON AFRICAN AMERICAN 82 mL/min (90-120)
[2018-10-10 01:26] LABS: AMYLASE - SERUM 119 U/L (25-115); CKMB 0.8 U/L (0.0-3.6); CREATINE KINASE 181 UL (21-232); LIPASE 144 U/L (73-393); MAGNESIUM - SERUM 2.1 mg/dL (1.8-2.4); PRO BNP 173 pg/mL (0-125); TROPONIN-I < 0.017 ng/mL (0.000-0.060)
[2018-10-10 02:01] LABS: APPEARANCE CLEAR (CLEAR); BILIRUBIN NEGATIVE (NEGATIVE); COLOR YELLOW (YELLOW); GLUCOSE NEGATIVE (NEGATIVE); KETONE NEGATIVE (NEGATIVE); NITRITE NEGATIVE (NEGATIVE); PROTEIN NEGATIVE (NEGATIVE); SPECIFIC GRAVITY 1.005 (1.005-1.020); UROBILINOGEN NORMAL (NORMAL)
[2018-10-10] MEDS ORDERED: ZANTAC300 MG PO (03:28)
[2018-10-10 07:30] VITALS: BP 110/68
== END 2018-10-10 07:32 | disposition home or self-care (01) ==
LOC: D.ER 00:13
PROVIDERS: Family Medicine
DX: R10.9 Unspecified abdominal pain (principal); F10.10 Alcohol abuse, uncomplicated

== ENCOUNTER 2019-01-18 02:59 | Emergency (ER) | payer MEDICARE ==
[~2019-01-18] VITALS: Ht 188 cm; Wt 79.5 kg
[~2019-01-18 02:59] MED LIST changes: +ZANTAC300 MG PO
[2019-01-18 03:00] VITALS: Ht 188 cm; Wt 79.5 kg
[2019-01-18 06:43] VITALS: BP 148/89
== END 2019-01-18 06:44 | disposition other institution (70) ==
LOC: D.ER 02:59
DX: S02.40DA Maxillary fracture, left side, initial encounter for closed fracture (principal); S02.32XA Fracture of orbital floor, left side, initial encounter for closed fracture; S02.82XA Fracture of other specified skull and facial bones, left side, initial encounter for closed fracture; V19.9XXA Pedal cyclist (driver) (passenger) injured in unspecified traffic accident, initial encounter; Y93.89 Activity, other specified; Y92.89 Other specified places as the place of occurrence of the external cause; Z23 Encounter for immunization

== ENCOUNTER 2019-05-05 11:24 | Emergency (ER) | payer MEDICARE ==
[~2019-05-05] VITALS: Ht 188 cm; Wt 75.0 kg
[2019-05-05 11:32] VITALS: Ht 188 cm; Wt 75.0 kg
[2019-05-05] MEDS ORDERED: PLAVIX75 MG PO (11:34)
[2019-05-05 12:40] LABS: HEMATOCRIT 34.9 % (42.0-54.0); HEMOGLOBIN 11.5 g/dL (13.5-17.5); MCH 31.9 pg (26.0-34.0); MCV 96.9 fL (80.0-100.0); MEAN PLATELET VOLUME 11.5 fL (7.4-10.4); RDW 16.1 % (11.5-14.5); WBC 3.3 10x3/uL (4.8-10.8)
[2019-05-05 12:42] LABS: PLATELET COUNT 55 10x3/uL (130-400)
[2019-05-05 12:42] LABS: UDS - AMPHET NEGATIVE QUAL (NEGATIVE); UDS - BARB NEGATIVE QUAL (NEGATIVE); UDS - BENZO NEGATIVE QUAL (NEGATIVE); UDS - COCAINE POSITIVE QUAL (NEGATIVE); UDS - OPIATE NEGATIVE QUAL (NEGATIVE); UDS - PCP NEGATIVE QUAL (NEGATIVE); UDS - THC NEGATIVE QUAL (NEGATIVE)
[2019-05-05 12:43] LABS: CALC OSMOLALITY 271 mosm/kg (275-300); CALCIUM 7.9 mg/dL (8.5-10.1); CARBON DIOXIDE 26.8 mmol/L (21.0-32.0); CHLORIDE - SERUM 105 mmol/L (98-107); GLUCOSE 129 mg/dL (74-106); POTASSIUM - SERUM 4.1 mmol/L (3.5-5.1); SODIUM 136 mmol/L (136-145); UREA NITROGEN 6 mg/dL (7-18); eGFR NON AFRICAN AMERICAN 82 mL/min (90-120)
[2019-05-05 12:48] LABS: INR 1.18 (0.85-1.17); PROTIME 14.5 SECONDS (11.6-15.0)
[2019-05-05 12:52] LABS: APPEARANCE HAZY (CLEAR); BACTERIA FEW /hpf (NEGATIVE); BILIRUBIN NEGATIVE (NEGATIVE); COLOR PINK (YELLOW); EPITHELIAL CELLS OCC /hpf (0-5); GLUCOSE NEGATIVE (NEGATIVE); KETONE NEGATIVE (NEGATIVE); MUCUS <1+ /lpf (NONE SEEN); NITRITE NEGATIVE (NEGATIVE); PROTEIN NEGATIVE (NEGATIVE); RED CELLS - URINE 25-50 /hpf (0-5); UROBILINOGEN NORMAL (NORMAL); WHITE CELLS - URINE RARE /hpf (NEGATIVE)
[2019-05-05 12:56] LABS: ALBUMIN 2.9 g/dL (3.4-5.0); ALKALINE PHOSPHATASE 104 U/L (46-116); ALT (SGPT) 39 U/L (10-68); BILIRUBIN - TOTAL 0.67 mg/dL (0.2-1.3); PROTEIN - SERUM 7.1 g/dL (6.4-8.2)
[2019-05-05 14:00] VITALS: BP 119/65
[2019-05-05 14:50] LABS: EOSINOPHILS 4 % (0-7); LYMPHOCYTES 49 % (15-50); MONOCYTES 1 % (2-11); NEUTROPHILS 46 % (40-80)
[2019-05-05 14:51] LABS: PLATELET ESTIMATE DECREASED
== END 2019-05-05 14:00 | disposition home or self-care (01) ==
LOC: D.ER 11:24
PROVIDERS: Family Medicine
DX: R31.9 Hematuria, unspecified (principal); D64.9 Anemia, unspecified; F14.90 Cocaine use, unspecified, uncomplicated; I10 Essential (primary) hypertension; Z72.0 Tobacco use

== ENCOUNTER 2019-05-17 09:09 | Emergency (ER) | payer MEDICARE ==
[~2019-05-17] VITALS: Ht 188 cm; Wt 75.0 kg
[~2019-05-17 09:09] MED LIST changes: +PLAVIX75 MG PO
[2019-05-17 09:23] VITALS: Ht 188 cm; Wt 75.0 kg
[2019-05-17] MEDS ORDERED: CIPRO500 MG PO (10:48)
[2019-05-17 10:53] LABS: APPEARANCE CLOUDY (CLEAR); BILIRUBIN NEGATIVE (NEGATIVE); COLOR YELLOW (YELLOW); GLUCOSE NEGATIVE (NEGATIVE); KETONE NEGATIVE (NEGATIVE); NITRITE POSITIVE (NEGATIVE); PROTEIN TRACE mg/dL (NEGATIVE); SPECIFIC GRAVITY 1.015 (1.005-1.020); UROBILINOGEN NORMAL (NORMAL)
[2019-05-17 10:54] VITALS: BP 148/89
[2019-05-17 10:58] LABS: BACTERIA MANY /hpf (NEGATIVE); EPITHELIAL CELLS NSEEN /hpf (0-5)
[2019-05-17 10:59] LABS: AMORPHOUS SEDIMENT >1+ /lpf (NONE SEEN)
== END 2019-05-17 10:55 | disposition home or self-care (01) ==
LOC: D.ER 09:09
PROVIDERS: Emergency Medicine
DX: R30.0 Dysuria (principal); T83.091A Other mechanical complication of indwelling urethral catheter, initial encounter; Z91.19 Patient's noncompliance with other medical treatment and regimen; I10 Essential (primary) hypertension

== ENCOUNTER → 2019-06-10 18:52 | Outpatient (CLI) | payer MEDICARE ==
[2019-05-17 09:23] VITALS: BMI 21.2
[~2019-06-10 18:52] MED LIST changes: +CIPRO500 MG PO
== END | disposition home or self-care (01) ==
LOC: D.LABREF 18:52
PROVIDERS: ATTEND Urology
DX: R82.998 Other abnormal findings in urine (principal)

== ENCOUNTER 2019-06-16 09:01 | Day surgery (SDC) | payer MEDICARE ==
[~2019-06-16] VITALS: Ht 188 cm; Wt 75.0 kg
[2019-06-16 09:35] LABS: CALC OSMOLALITY 277 mosm/kg (275-300); CALCIUM 8.1 mg/dL (8.5-10.1); CARBON DIOXIDE 28.2 mmol/L (21.0-32.0); CHLORIDE - SERUM 104 mmol/L (98-107); GLUCOSE 117 mg/dL (74-106); SODIUM 140 mmol/L (136-145); UREA NITROGEN 8 mg/dL (7-18); eGFR NON AFRICAN AMERICAN 82 mL/min (90-120)
[2019-06-16 09:39] LABS: HEMATOCRIT 34.3 % (42.0-54.0); HEMOGLOBIN 11.7 g/dL (13.5-17.5); MCH 32.1 pg (26.0-34.0); MCHC 34.1 g/dL (31.0-37.0); MCV 94.2 fL (80.0-100.0); RBC 3.64 10x6/uL (4.20-6.10); RDW 16.4 % (11.5-14.5); WBC 2.9 10x3/uL (4.8-10.8)
[2019-06-16 09:56] VITALS: BP 132/75; Ht 188 cm; Wt 75.0 kg
--- NOTE | 2019-06-16 15:47 | NUR ---
DC INSTRUCTIONS GIVEN TO PT. STATES UNDERSTANDING. DC'D IV CATH FULLY INTACT. SWITCHED TO COLLINS LEG BAG. PT LEFT UNIT VIA WC AT 1545
--- NOTE | 2019-06-17 08:51 | OP ---
PATIENT NAME: MELITON HA MEDICAL RECORD: [id number] :[birth year] LOCATION:D.OPS ADMISSION DATE: SURGEON: PASCUAL GARCIA MD DATE OF OPERATION: 06/16/2019 SURGEON: Pascual Garcia MD ANESTHESIA: General anesthesia by Alfred Munoz CRNA DIAGNOSIS: Bladder outlet obstruction with recurrent urinary tract infections, bladder neck stenosis. PROCEDURE: UroLift times 4 in block configuration around the bladder neck. FINDINGS: Bladder neck stenosis with no lateral lobe hyperplasia. Single ureteral orifices bilaterally with a trabeculated bladder. There are no bladder tumors. ESTIMATED BLOOD LOSS: None. CLINICAL HISTORY: This is a 59-year-old male, who has a prior right below-knee amputation. He has issues with his left knee and he needs to have surgery on the left knee. However, the surgery has been delayed as the patient keeps having recurrent urinary tract infections due to bladder outlet obstruction. His latest infection has been treated with antibiotics and in fact, I have kept him on antibiotics. He comes today to have the UroLift procedure done. HE IS ALLERGIC TO MORPHINE. He was given Levaquin IV conference producer to the OR. DESCRIPTION OF PROCEDURE: The patient was given IV sedation initially. However, even with large doses of propofol, he was not sedated. He therefore had to be given general anesthetic. He was then placed in the lithotomy position and prepped and draped. The UroLift scope was introduced. The prostate is not enlarged, but the bladder neck is tight. Going into the bladder, the bladder is moderately trabeculated. No bladder tumors were seen. There is generalized inflammation from his recurrent urinary tract infections. I decided to put 4 units around the bladder neck in a box. These were all placed 1.5 cm distal to the bladder neck to prevent the clips from intruding into the bladder. The first 2 were placed at the end of the lateral sulcus on each side. The bladder tumor placed at the mid urethral height level anterior posteriorly. This 1 unit was placed on each side. The bladder neck was now opened. There was some bleeding from the placement of these units. I decided to leave a catheter in. A Sensor wire was placed through the scope into the bladder. The scope was then removed, leaving the wire in place. Over the wire, we inserted a 16-Montenegrin tuscarora tip Garces catheter into the bladder. Once the catheter was fully in the bladder, then the balloon was inflated with 10 mL of sterile water and then the wire was removed entirely. The catheter was put to bag drainage. I will see him next week to remove the catheter for a voiding trial. TRANSINT:[id number] Voice Confirmation ID: [id number] DOCUMENT ID: [id number] OPERATIVE REPORT [id number] MELITON HA SR, ROBERT S MD at 0851 CC: [id number] DICTATION DATE: 06/16/19 1419 SATURATION DIVER: 06/16/19 1818 [facility] 06/16/19 [place] [id number] [place] [id number]
== END 2019-06-16 15:45 | disposition home or self-care (01) ==
LOC: D.OPS 09:01 → D.PAN 11:15 → D.OPS 11:15 → D.PAN 13:10 → D.OPS 14:00 → D.PAN 14:00 → D.OPS 15:45
PROVIDERS: Anesthesiology; ATTEND Urology
DX: N40.1 Benign prostatic hyperplasia with lower urinary tract symptoms (principal); N30.00 Acute cystitis without hematuria; N32.0 Bladder-neck obstruction; E11.65 Type 2 diabetes mellitus with hyperglycemia; R10.9 Unspecified abdominal pain

== ENCOUNTER → 2019-07-27 19:48 | Outpatient (CLI) | payer MEDICARE ==
[2019-06-16 09:56] VITALS: BMI 21.2
== END | disposition home or self-care (01) ==
LOC: D.LABREF 19:48
PROVIDERS: ATTEND Urology
DX: N39.0 Urinary tract infection, site not specified (principal)

== ENCOUNTER → 2019-09-29 18:55 | Outpatient (CLI) | payer MEDICARE ==
[2019-06-16 09:56] VITALS: BMI 21.2
== END | disposition home or self-care (01) ==
LOC: D.LABREF 18:55
PROVIDERS: ATTEND Orthopaedic Surgery
DX: M25.562 Pain in left knee (principal)

== ENCOUNTER 2019-10-01 12:10 | Inpatient (IN) | payer MEDICARE ==
[~2019-10-01] VITALS: Ht 188 cm; Wt 90.9 kg
[2019-10-28 09:14] LABS: HEMATOCRIT 33.5 % (42.0-54.0); HEMOGLOBIN 11.5 g/dL (13.5-17.5); MCH 30.4 pg (26.0-34.0); MCHC 34.3 g/dL (31.0-37.0); MCV 88.6 fL (80.0-100.0); RBC 3.78 10x6/uL (4.20-6.10); RDW 15.7 % (11.5-14.5); WBC 3.4 10x3/uL (4.8-10.8)
[2019-10-28 09:16] LABS: PLATELET COUNT 67 10x3/uL (130-400)
[2019-10-28 09:24] LABS: CALC OSMOLALITY 266 mosm/kg (275-300); CARBON DIOXIDE 26.5 mmol/L (21.0-32.0); CHLORIDE - SERUM 99 mmol/L (98-107); POTASSIUM - SERUM 3.4 mmol/L (3.5-5.1); SODIUM 132 mmol/L (136-145); UREA NITROGEN 4 mg/dL (7-18); eGFR NON AFRICAN AMERICAN 82 mL/min (90-120)
[2019-10-28 09:25] LABS: GLUCOSE 191 mg/dL (74-106)
[2019-10-28 09:30] LABS: APTT 41.7 SECONDS (22.8-39.4); INR 1.25 (0.85-1.17); PROTIME 15.6 SECONDS (11.6-15.0)
[2019-10-28 09:47] LABS: BILIRUBIN NEGATIVE (NEGATIVE); EPITHELIAL CELLS 0-5 /hpf (0-5); GLUCOSE NEGATIVE (NEGATIVE); KETONE NEGATIVE (NEGATIVE); NITRITE POSITIVE (NEGATIVE); RED CELLS - URINE RARE /hpf (0-5); SPECIFIC GRAVITY 1.025 (1.005-1.020); UROBILINOGEN 4 mg/dL (NORMAL); WHITE CELLS - URINE 25-50 /hpf (NEGATIVE)
[2019-10-28 09:48] LABS: BACTERIA MANY /hpf (NEGATIVE)
[2019-10-28 13:36] LABS: ANISOCYTOSIS OCC; EOSINOPHILS 1 % (0-7); LYMPHOCYTES 43 % (15-50); MONOCYTES 6 % (2-11); NEUTROPHILS 50 % (40-80); PLATELET ESTIMATE DECREASED
[2019-11-02] MEDS ORDERED: ANTIBIOTIC PO (10:23)
[2019-11-02 10:24] VITALS: BP 107/55; BMI 21.3
[2019-11-02 11:03] LABS: HEMATOCRIT 29.9 % (42.0-54.0); HEMOGLOBIN 9.8 g/dL (13.5-17.5); MCH 30.2 pg (26.0-34.0); MCHC 32.8 g/dL (31.0-37.0); MCV 92.3 fL (80.0-100.0); MEAN PLATELET VOLUME 11.2 fL (7.4-10.4); RBC 3.24 10x6/uL (4.20-6.10); RDW 16.9 % (11.5-14.5)
[2019-11-02 11:51] LABS: SPECIFIC GRAVITY 1.015 (1.005-1.020)
[2019-11-02 11:52] LABS: BACTERIA FEW /hpf (NEGATIVE); BILIRUBIN NEGATIVE (NEGATIVE); EPITHELIAL CELLS 0-5 /hpf (0-5); GLUCOSE NEGATIVE (NEGATIVE); KETONE NEGATIVE (NEGATIVE); NITRITE NEGATIVE (NEGATIVE); RED CELLS - URINE RARE /hpf (0-5); UROBILINOGEN NORMAL (NORMAL); WHITE CELLS - URINE OCC /hpf (NEGATIVE)
[2019-11-02 16:52] VITALS: BP 112/67
[2019-11-02 17:05] VITALS: Ht 188 cm; Wt 90.9 kg
--- NOTE | 2019-11-02 20:25 | NUR ---
PATIENT RESTING IN BED WITH EYES CLOSED AND NO S/S OF DISTRESS. BED IN LOWEST POSITION AND CALL LIGHT WITHIN REACH. WILL CONTINUE TO MONITOR.
[2019-11-02 21:19] VITALS: BP 155/92
[2019-11-03 00:06] VITALS: BP 109/65
[2019-11-03 03:48] VITALS: BP 118/66
[2019-11-03 06:42] LABS: HEMATOCRIT 28.4 % (42.0-54.0); HEMOGLOBIN 9.2 g/dL (13.5-17.5); MCH 30.4 pg (26.0-34.0); MCHC 32.4 g/dL (31.0-37.0); MCV 93.7 fL (80.0-100.0); MEAN PLATELET VOLUME 10.8 fL (7.4-10.4); PLATELET COUNT 62 10x3/uL (130-400); RBC 3.03 10x6/uL (4.20-6.10); RDW 17.5 % (11.5-14.5)
[2019-11-03 06:46] LABS: WBC 4.1 10x3/uL (4.8-10.8)
[2019-11-03 07:30] VITALS: BP 110/63
[2019-11-03 10:34] LABS: PLATELET ESTIMATE DECREASED
[2019-11-03 12:00] VITALS: BP 114/60
--- NOTE | 2019-11-03 12:56 | OP ---
PATIENT NAME: MELITON HA MEDICAL RECORD: [id number] :64 LOCATION:D.M3 D.1207 ADMISSION DATE:11/02/19 SURGEON: NATALY YEE MD DATE OF OPERATION: 11/02/2019 PREOPERATIVE DIAGNOSES: Painful left total knee arthroplasty. POSTOPERATIVE DIAGNOSIS: Painful left total knee arthroplasty. PROCEDURE: 1. Revision total knee arthroplasty - polyethylene exchange. 2. Patellaplasty that is patellar resurfacing. SURGEON: Nataly Yee MD WORD PROCESSOR OPERATOR: LUCILLE Kam SECOND WORD PROCESSOR OPERATOR: ROBERTO Figueredo INTRAOPERATIVE COMPLICATIONS: None. SUMMARY OF PATHOLOGIC FINDINGS: he had eburnation of the patella that was not resurfaced at the time of his initial total knee arthroplasty and he had laxity globally requiring switch from the 9 to 11 mm distal femoral and proximal tibial components with excellent overall condition. OPERATIVE SUMMARY IN DETAIL: After obtaining the appropriate preoperative orthopedic surgery consent as well as anesthetic consultation evaluation and clearance, the patient was brought to the operating room and placed on the operating table in a supine position. After adequate general laryngeal mask airway was administered, tourniquet was placed about the proximal aspect of the left lower extremity. Left lower extremity was then prepped and draped in routine sterile fashion. The leg was elevated and exsanguinated, tourniquet inflated to 350 mmHg. At this point, timeout was taken and agreed upon by all given the patient's unique identifiers. Midline incision was taken to the previous midline incision. The paramedian arthrotomy was performed. Patella was everted and distal femur was exposed. The polyethylene was then removed with little degree of difficulty. Trials were undertaken. It was felt like 13 was too much, but 11 was most appropriate. A 11 mm polyethylene was then placed back into the original tibial tray with good fit, fill, and secured. The knee was taken through range of motion at this time and found to be excellent with a very good stability. At this point, the eburnated surface of the patella was cut and prepared for patelloplasty. A size 33 patella was cemented into place. All excess cement was removed. After cement was allowed to harden, the knee was taken through range of motion and found to be stable in all planes. The cavity was then filled with a gram of vancomycin and a gram of tobramycin. Paramedian arthrotomy was closed with #2 Ethibond by both James Nelson and Rogerio Jackson registered nurse first assistant and registered nurse first assistant student respectively. Skin was likewise closed with #1 Vicryl, 2-0 Vicryl, and skin rene. Sterile dressings were applied. The patient was awakened and taken to the recovery room in stable condition. All final needle and sponge counts were correct. TRANSINT:[id number] Voice Confirmation ID: [id number] DOCUMENT ID: [id number] OPERATIVE REPORT [id number] MELITON HA SR, MD, NATALY ALVAREZ at 1256 CC: [id number] DICTATION DATE: 11/02/19 1554 GLAZE SPRAYER: 11/03/19 0040 ADM IN [facility] [address] [place] [address]
[2019-11-03 16:00] VITALS: BP 116/66
--- NOTE | 2019-11-03 19:30 | NUR ---
PATIENT RESTING IN BED WITH EYES CLOSED AND NO S/S OF DISTRESS. BED IN LOWEST POSITION AND CALL LIGHT WITHIN REACH. WILL CONTINUE TO MONITOR.
[2019-11-03 20:00] VITALS: BP 115/52
[2019-11-04] VITALS: BP 115/65
--- NOTE | 2019-11-04 02:05 | NUR ---
PT RESTING WITH EYES CLOSED, RESP QUIET, NO DISTRESS NOTED, LEFT UNDISTURBED AT THIS LIONEL, BED IN LOW POSITION, SIDE RAILS X 2, CALL LIGHT IN REACH
--- NOTE | 2019-11-04 03:00 | NUR ---
GAYATHRI HARVEY CHARGE NURSE REPORTED THAT SHE CLEANED AROUND PT'S DRESSING DUE TO OLD BLOOD NOTED
[2019-11-04 04:00] VITALS: BP 96/54
--- NOTE | 2019-11-04 05:10 | NUR ---
PT RESTING WITH EYES CLOSED, RESP QUIET, NO DISTRESS NOTED, LEFT UNDISTURBED AT THIS TIME
[2019-11-04 07:05] LABS: HEMATOCRIT 25.2 % (42.0-54.0); MCH 30.1 pg (26.0-34.0); MCHC 31.7 g/dL (31.0-37.0); MCV 94.7 fL (80.0-100.0); MEAN PLATELET VOLUME 11.2 fL (7.4-10.4); RBC 2.66 10x6/uL (4.20-6.10); RDW 17.6 % (11.5-14.5); WBC 4.1 10x3/uL (4.8-10.8)
--- NOTE | 2019-11-04 09:59 | NUR ---
PT PRN NORCO GIVEN 10 PAIN LEVEL
[2019-11-04] MEDS ORDERED: ELIQUIS2.5 MG PO (10:11)
[2019-11-04] MEDS ORDERED: PERCOCET 10-321 EAC1 PO (10:11)
--- NOTE | 2019-11-04 10:30 | NUR ---
called to pt room, iv had came out of rt hand while pt sleeping phone awoke pt to bleeding, bleeding stopped, iv catheter intact placed in needle disposal box in room, pt cleaned up and changed, complete bed change done, blood on bed rails and floor cleaned, pt resting comfortable
[2019-11-04 12:23] VITALS: BP 118/67
[2019-11-04 13:35] VITALS: BP 94/54
--- NOTE | 2019-11-04 14:38 | MORECARE ---
CASE MANAGEMENT DISCHARGE SUMMARY PATIENT: MELITON HA UNIT: [id number] ADM DATE: 11/02/19 AGE: 59 : 64 SEX: M ROOM/BED: D.1207 AUTHOR: MANA MONTALVO PHYSICIAN: REFERRING PHYSICIAN: NATALY YEE MD DATE OF SERVICE: 11/04/19 Discharge Plan Patient Name: [facility]ELITON HA [facility] [facility] 1960 Planned Disposition: Home Health Service Anticipated Discharge Date: 11/04/19 Discharge Date: Expected LOS: 2 Initial Reviewer: [email or web address] Initial Review Date: 11/02/2019 Generated: 11/04/19 3:37 pm External Providers External Provider: [facility] Next Contact Date: Service Request Date: Service Type: Resolution: Reviewer: Comments: Patient Name: MELITON HA Page 10365 at 1438 All edits/amendments must be made on the electronic document DICTATION DATE: 11/04/19 143 AUTOMOTIVE UPHOLSTERER: BILL 11/04/19 1437 RPT#: [id number] DC DATE: STATUS: ADM IN [place] [address] [place] [address] END OF REPORT
--- NOTE | 2019-11-04 15:31 | NUR ---
PT RECIEVED AND SIGNED DISCHARGE, INSTRUCTIONS WERE GIVEN FOR WOUND CARE, MEDICATIONS ORDERED, DR APPOINTMENTS, FAMILY CALLED TO [facility] DEALER PT.
--- NOTE | 2019-11-04 15:45 | NUR ---
ESCORTED PATIENT OUT OF HOSPITAL VIA WC WITH PERSONAL BELONGINGS TO PRIVATE VEHICLE WITH DAUGHTER AT SIDE.
--- NOTE | 2019-11-04 16:36 | MORECARE ---
CASE MANAGEMENT DISCHARGE SUMMARY PATIENT: MELITON HA UNIT: [id number] ADM DATE: 11/02/19 AGE: 59 : 64 SEX: M ROOM/BED: D.1207 AUTHOR: SELVIN,DOC PHYSICIAN: REFERRING PHYSICIAN: NATALY YEE MD DATE OF SERVICE: 11/04/19 Discharge Plan Patient Name: [facility]ITON HA [facility] [facility] 1960 Planned Disposition: Home Health Service Anticipated Discharge Date: 11/04/19 Discharge Date: 11/04/2019 Expected LOS: 2 Initial Reviewer: [email or web address] Initial Review Date: 11/02/2019 Generated: 11/04/19 5:35 pm Comments DCP- Discharge Planning Updated by [email or web address]: Jazzy Hernandez on 11/04/19 3:[address] DC plan: [facility] for [facility] is [facility], but they cannot admit him until Saturday. Contacted Joel with [facility], but they are unable to accept patient. Contacted Lesly, with [facility] and she states they can admit either or Saturday. Faxed required information to [facility]. The patient is in agreement to this plan. CM met with patient to discuss initial discharge planning. Patient is in agreement to proceed with the assessment. Patient reports that he lives at home independently with a S/O. Patient is alert/oriented. Stairs/steps: 1. PCP: Dr. Carnes. Pharmacy: [facility]. Patient states he has been able to obtain all of his prescribed medications. HHS: [facility]. DME: 2 wheel walker, cane, shower bench, uses a prosthesis(leg). Patient gives permission to speak with family members/care givers. Emergency contact: Arthena [phone]. Patient is Independent with all ADL's, medication management DISH WASHER. CM discussed the availability of HH, Rehab, SNF, OP Therapy, DME services. Patient denies the need for additional services at this time and feels safe returning to previous environment. Patient denies hospitalization within the past 30 days. Patient denies the use of community resources DISH WASHER. Transportation at time of discharge: Daughter. Last DP export: 11/04/19 1:38 p Patient Name: MELITON HA Page [phone] at 1636 All edits/amendments must be made on the electronic document DICTATION DATE: 11/04/191634 STEAM PRESS TENDER: BILL 11/04/191634 RPT#: [id number] DC DATE:11/04/19 STATUS: DIS IN [facility] [address] [place] [address] END OF REPORT
--- NOTE | 2019-11-04 16:44 | MORECARE ---
CASE MANAGEMENT DISCHARGE SUMMARY PATIENT: MELITON HA UNIT: [id number] ADM DATE: 11/02/19 AGE: 59 : 64 SEX: M ROOM/BED: D.1207 AUTHOR: SELVIN,DOC PHYSICIAN: REFERRING PHYSICIAN: NATALY YEE MD DATE OF SERVICE: 11/04/19 Discharge Plan Patient Name: MELITON HA Facility: [facility]:[place] : 1960 Planned Disposition: Home Health Service Anticipated Discharge Date: 11/04/19 Discharge Date: 11/04/2019 Expected LOS: 2 Initial Reviewer: [email or web address] Initial Review Date: 11/02/2019 Generated: 11/04/19 5:44 pm Comments DCP- Discharge Planning Updated by [email or web address]: Jazzy Hernandez on 11/04/19 3:[address] DC plan: Patient's choice for [facility] is [facility], but they cannot admit him until Saturday. Contacted Joel with [facility], but they are unable to accept patient. Contacted Lesly, with [facility] and she states they can admit either or Saturday. Faxed required information to [facility]. The patient is in agreement to this plan. CM met with patient to discuss initial discharge planning. Patient is in agreement to proceed with the assessment. Patient reports that he lives at home independently with a S/O. Patient is alert/oriented. Stairs/steps: 1. PCP: Dr. Carnes. Pharmacy: [facility]. Patient states he has been able to obtain all of his prescribed medications. HHS: [facility]. DME: 2 wheel walker, cane, shower bench, uses a prosthesis(leg). Patient gives permission to speak with family members/care givers. Emergency contact: Arthena [phone]. 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 CM discussed the availability of HH, Rehab, SNF, OP Therapy, DME services. Patient denies the need for additional services at this time and feels safe returning to previous environment. Patient denies hospitalization within the past 30 days. Patient denies the use of community resources AIRPLANE TUBE BUILDER. Transportation at time of discharge: Daughter. DCPIA - Discharge Planning Initial Assessment Updated by [id number]: Jazzy Hernandez on 11/04/19 4:36 pm * Is the patient Alert and Oriented? Yes * How many steps to enter\exit or inside your home? * PCP Dr. Carnes * Pharmacy [facility] * Preadmission Environment Home with Family * ADLs Independent * Equipment Bedside Commode Cane Rolling Walker Shower Chair * Other Equipment CPM, Polar Pack ice machine * List name and contact numbers for known caregivers / representatives who currently or will assist patient after discharge: Arthena Alford * Verbal permission to speak to the caregivers and representatives has been obtained from the patient. Yes * Community resources currently utilized Home Health * Please name any agencies selected above. [facility] * Additional services required to return to the preadmission environment? Yes * Can the patient safely return to the preadmission environment? Yes * Has this patient been hospitalized within the prior 30 days at any hospital? No Last DP export: 11/04/19 3:36 p Patient Name: MELITON HA Page [id number] at 1644 All edits/amendments must be made on the electronic document DICTATION DATE: 11/04/191643 NEIGHBORHOOD COORDINATOR: BILL 11/04/191643 RPT#: [id number] DC DATE:11/04/19 STATUS: DIS IN [facility] [address] [place] [address] END OF REPORT
--- NOTE | 2019-11-05 09:05 | MORECARE ---
CASE MANAGEMENT DISCHARGE SUMMARY PATIENT: TONIO DERAS UNIT: [id number] ADM DATE: 11/02/19 AGE: 59 : 64 SEX: M ROOM/BED: D.1207 AUTHOR: SELVIN,DOC PHYSICIAN: REFERRING PHYSICIAN: NATALY YEE MD DATE OF SERVICE: 11/05/19 Discharge Plan Patient Name: TONIO DERAS Facility: [facility]:[place] : 1960 Planned Disposition: Home Health Service Anticipated Discharge Date: 11/04/19 Discharge Date: 11/04/2019 Expected LOS: 2 Initial Reviewer: [email or web address] Initial Review Date: 11/02/2019 Generated: 11/05/19 10:04 am Comments DCP- Discharge Planning Updated by [email or web address]: Jazzy Hernandez on 11/04/19 3:[address] DC plan: Patient's choice for [facility]HS is [facility], but they cannot admit him until Saturday. Contacted Joel with [facility], but they are unable to accept patient. Contacted Lesly, with [facility] and she states they can admit either or Saturday. Faxed required information to [facility]. The patient is in agreement to this plan. CM met with patient to discuss initial discharge planning. Patient is in agreement to proceed with the assessment. Patient reports that he lives at home independently with a S/O. Patient is alert/oriented. Stairs/steps: 1. PCP: Dr. Carnes. Pharmacy: [facility]. Patient states he has been able to obtain all of his prescribed medications. HHS: [facility]. DME: 2 wheel walker, cane, shower bench, uses a prosthesis(leg). Patient gives permission to speak with family members/care givers. Emergency contact: Arthena [phone]. 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 CM discussed the availability of HH, Rehab, SNF, OP Therapy, DME services. Patient denies the need for additional services at this time and feels safe returning to previous environment. Patient denies hospitalization within the past 30 days. Patient denies the use of community resources SIMULATION TECH. Transportation at time of discharge: Daughter. DCPIA - Discharge Planning Initial Assessment Updated by [id number]: Jazzy Hernandez on 11/04/19 4:36 pm * Is the patient Alert and Oriented? Yes * How many steps to enter\exit or inside your home? * PCP Dr. Carnes * Pharmacy [facility] * Preadmission Environment Home with Family * ADLs Independent * Equipment Bedside Commode Cane Rolling Walker Shower Chair * Other Equipment CPM, Polar Pack ice machine * List name and contact numbers for known caregivers / representatives who currently or will assist patient after discharge: Arthena * Verbal permission to speak to the caregivers and representatives has been obtained from the patient. Yes * Community resources currently utilized Home Health * Please name any agencies selected above. [facility] * Additional services required to return to the preadmission environment? Yes * Can the patient safely return to the preadmission environment? Yes * Has this patient been hospitalized within the prior 30 days at any hospital? No External Providers External Provider: [facility] Next Contact Date: Service Request Date: Service Type: Resolution: Reviewer: Comments: Coverage Notice Reviewer: [id number] - Jazzy Hernandez Notice Issued Date-Time: 11/04/2019 16:47 Notice Type: Patient Choice Letter Notice Delivered To: Patient Relationship to Patient: Self Crew Scheduler Name: Tonio Deras Delivery Method: HAND - Hand Delivered Nelly Days: Prior Verbal Notification: Recipient Understood Notice: Yes Recipient Signature: Yes Med Rec Note Co-signed by Attending: Coverage Notice Comment: Patient choice for [facility] with [facility]. Last DP export: 11/04/19 3:44 p Patient Name: TONIO DERAS Page [phone] at 0905 All edits/amendments must be made on the electronic document DICTATION DATE: 11/05/19 09 TICKET COLLECTOR: BILL 11/05/19903 RPT#: [id number] DC DATE:11/04/19 STATUS: DIS IN [facility] [address] [place] [address] END OF REPORT
--- NOTE | 2019-11-05 09:20 | MORECARE ---
CASE MANAGEMENT DISCHARGE SUMMARY PATIENT: TONIO DERAS UNIT: [id number] ADM DATE: 11/02/19 AGE: 59 : 64 SEX: M ROOM/BED: D.1207 AUTHOR: SELVIN,DOC PHYSICIAN: REFERRING PHYSICIAN: NATALY YEE MD DATE OF SERVICE: 11/05/19 Discharge Plan Patient Name: TONIO DERAS Facility: [facility]:[place] : 1960 Planned Disposition: Home Health Service Anticipated Discharge Date: 11/04/19 Discharge Date: 11/04/2019 Expected LOS: 2 Initial Reviewer: [email or web address] Initial Review Date: 11/02/2019 Generated: 11/05/19 10:20 am Comments DCP- Discharge Planning Updated by [email or web address]: Jazzy Hernandez on 11/05/19 8:[address] Per [facility], patient will be admitted to their service today. Faxed required information to [phone]. DCP- Discharge Planning Updated by [email or web address]: Jazzy Hernandez on 11/04/19 3:[address] DC plan: Patient's choice for [facility] is [facility], but they cannot admit him until Saturday. Contacted Joel with [facility], but they are unable to accept patient. Contacted Lesly, with [facility] and she states they can admit either or Saturday. Faxed required information to [facility]. The patient is in agreement to this plan. CM met with patient to discuss initial discharge planning. Patient is in agreement to proceed with the assessment. Patient reports that he lives at home independently with a S/O. Patient is alert/oriented. Stairs/steps: 1. PCP: Dr. Carnes. Pharmacy: [facility]. Patient states he has been able to obtain all of his prescribed medications. [facility]: [facility]. DME: 2 wheel walker, cane, shower bench, uses a prosthesis(leg). Patient gives permission to speak with family members/care givers. Emergency contact: Pricilla Arellano [phone]. 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 CM discussed the availability of HH, Rehab, SNF, OP Therapy, DME services. Patient denies the need for additional services at this time and feels safe returning to previous environment. Patient denies hospitalization within the past 30 days. Patient denies the use of community resources HARBOR PATROL POLICE. Transportation at time of discharge: Daughter. DCPIA - Discharge Planning Initial Assessment Updated by [id number]: Jazzy Hernandez on 11/04/19 4:36 pm * Is the patient Alert and Oriented? Yes * How many steps to enter\exit or inside your home? * PCP Dr. Carnes * Pharmacy [facility] * Preadmission Environment Home with Family * ADLs Independent * Equipment Bedside Commode Cane Rolling Walker Shower Chair * Other Equipment CPM, Polar Pack ice machine * List name and contact numbers for known caregivers / representatives who currently or will assist patient after discharge: Arthena Rector * Verbal permission to speak to the caregivers and representatives has been obtained from the patient. Yes * Community resources currently utilized Home Health * Please name any agencies selected above. [facility] * Additional services required to return to the preadmission environment? Yes * Can the patient safely return to the preadmission environment? Yes * Has this patient been hospitalized within the prior 30 days at any hospital? No Coverage Notice Reviewer: [email or web address] - Jazzy Hernandez Notice Issued Date-Time: 11/04/2019 16:47 Notice Type: Patient Choice Letter Notice Delivered To: Patient Relationship to Patient: Self Marine Superintendent Name: Tonio Deras Delivery Method: HAND - Hand Delivered Nelly Days: Prior Verbal Notification: Recipient Understood Notice: Yes Recipient Signature: Yes Med Rec Note Co-signed by Attending: Coverage Notice Comment: Patient choice for [facility] with [facility]. Last DP export: 11/05/19 8:05 a Patient Name: TONIO DERAS Page 32541 at 0920 All edits/amendments must be made on the electronic document DICTATION DATE: 11/05/19919 LAMINA SEARCHER: BILL 11/05/19919 RPT#: [id number] DC DATE:11/04/19 STATUS: DIS IN [facility] [address] [place] [address] END OF REPORT
== END 2019-11-04 16:32 | disposition home health service (06) | DRG 468 ==
LOC: D.SDCHOLD → D.M3 11-02 15:50 → D.SDCHOLD 11-03 13:25 → D.M3 11-03 13:26
PROVIDERS: ADMIT Orthopaedic Surgery; ATTEND Orthopaedic Surgery
PROC: 0SPD0JZ Removal of Synthetic Substitute from Left Knee Joint, Open Approach (ICD-10-PCS; principal; 2019-11-02 12:45)
PROC: 0SRD0J9 Replacement of Left Knee Joint with Synthetic Substitute, Cemented, Open Approach (ICD-10-PCS; 2019-11-02 12:45)
DX: T84.84XA Pain due to internal orthopedic prosthetic devices, implants and grafts, initial encounter (principal); Y83.9 Surgical procedure, unspecified as the cause of abnormal reaction of the patient, or of later complication, without mention of misadventure at the time of the procedure; I10 Essential (primary) hypertension; Z72.0 Tobacco use

== ENCOUNTER 2019-12-09 11:44 | Inpatient (IN) | payer MEDICARE, MEDICAID ==
[~2019-12-09] VITALS: Ht 188 cm; Wt 74.8 kg
[~2019-12-09 11:44] MED LIST changes: +ANTIBIOTIC PO; +PERCOCET 10-321 EAC1 PO
[2019-12-17] MEDS ORDERED: HYDROCODON-ACE1 EA10 PO (09:01)
[2019-12-21 07:34] LABS: ANION GAP 11.3 mmol/L (8-16); CALCIUM 8.8 mg/dL (8.5-10.1); CARBON DIOXIDE 28.6 mmol/L (21.0-32.0); CREATININE - SERUM 1.2 mg/dL (0.6-1.3); POTASSIUM - SERUM 3.9 mmol/L (3.5-5.1)
[2019-12-21 07:36] LABS: HEMATOCRIT 35.2 % (42.0-54.0); HEMOGLOBIN 11.2 g/dL (13.5-17.5); MCH 27.6 pg (26.0-34.0); MCHC 31.8 g/dL (31.0-37.0); MCV 86.7 fL (80.0-100.0); MEAN PLATELET VOLUME 10.2 fL (7.4-10.4); RBC 4.06 10x6/uL (4.20-6.10); RDW 17.5 % (11.5-14.5); WBC 3.8 10x3/uL (4.8-10.8)
[2019-12-21 07:37] LABS: PLATELET COUNT 144 10x3/uL (130-400)
[2019-12-21 07:39] VITALS: BP 151/85; BMI 20.5
[2019-12-21 08:01] LABS: EOSINOPHILS 2 % (0-7); LYMPHOCYTES 48 % (15-50); MONOCYTES 1 % (2-11); NEUTROPHILS 47 % (40-80); PLATELET ESTIMATE NORMAL; TARGET CELLS OCC; TEAR DROP CELLS OCC
[2019-12-21 08:02] LABS: ROULEAUX OCC
--- NOTE | 2019-12-21 11:44 | NUR ---
ANESTHESIA AT BEDSIDE FOR REBLOCK TO RT LEG
[2019-12-21 12:00] VITALS: BP 129/70
[2019-12-21 12:34] VITALS: BP 139/68
[2019-12-21 13:08] VITALS: BP 139/68; BMI 21.2
[2019-12-21 16:00] VITALS: BP 120/68
[2019-12-21 20:00] VITALS: BP 151/71
--- NOTE | 2019-12-21 21:55 | NUR ---
PATIENT ACCIDENTALLY PULLED OUT IV. CATH IS IN TACT AND DISCARDED APPROPRIATELY. RESITED IV X 1 ATTEMPT. 22 G TO THE RIGHT FOREARM. PATIENT TOLERATED WELL.
[2019-12-22] VITALS: BP 128/76
[2019-12-22 04:00] VITALS: BP 121/63
[2019-12-22 05:40] LABS: HEMATOCRIT 29.3 % (42.0-54.0); HEMOGLOBIN 9.1 g/dL (13.5-17.5)
--- NOTE | 2019-12-22 07:15 | NUR ---
RESTING IN BED WITH EYES CLOSED. RESPIRATIONS EVEN AND UNLABORED. NO S/S OF ACUTE DISTRESS NOTED. POD #1 REVISION OF RIGHT BKA. SCD TO LEFT LEG. IV TO RIGHT FOREARM, D5 1/2 NS INFUSING @ 50ML/HR. SITE PATENT WITHOUT REDNESS OR SWELLING. CALL LIGHT IN REACH. WILL CONTINUE TO MONITOR.
[2019-12-22 08:00] VITALS: BP 128/77
--- NOTE | 2019-12-22 09:47 | OP ---
PATIENT NAME: MELITON HA MEDICAL RECORD: [id number] :[birth year] LOCATION:D[address] [id number] ADMISSION DATE:12/21/19 SURGEON: NATALY YEE MD DATE OF OPERATION: 12/21/2019 PREOPERATIVE DIAGNOSIS: Painful right below-knee amputation. POSTOPERATIVE DIAGNOSIS: Painful right below-knee amputation. PROCEDURE: Revision painful below-knee amputation. SURGEON: Dr. Yee PEANUT SHELLER: FA. Ryley Gonzales FAS INTRAOPERATIVE COMPLICATIONS: None. 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 OPERATIVE SUMMARY IN DETAIL: After obtaining the appropriate preoperative orthopedic surgery consent as well as anesthetic consultation, evaluation and clearance, the patient was brought to the operating room and placed on the operating table in supine position. After adequate general laryngeal mask airway was administered, tourniquet was placed on the proximal aspect of the right lower extremity. Right lower extremity was then prepped and draped in routine sterile fashion. The leg was elevated and exsanguinated, tourniquet inflated to 350 mmHg. At this point, the appropriate timeout was taken and agreed upon by all given the patient's unique identifiers. Previously utilized incision was utilized again. This was taken medially down the level of bone, which was immediately underneath the skin. The bone was then resected approximately 2.5 cm above its prior resection as was the fibula. Having resected both the fibula and the tibia, copious irrigation was followed by letting the tourniquet down. Bleeders were high ligated. The wound was again irrigated and then serial and sequential closure was done with the new more viable and robust ____. Tourniquet already having been deflated, the patient was awakened and taken to the recovery room in stable condition. All final needle and sponge counts were correct. TRANSINT:[id number] Voice Confirmation ID: [id number] DOCUMENT ID: [id number] NATALY YEE MD at 0947 CC: [id number] DICTATION DATE: 12/21/19 1301 CONSULTING ENGINEER: 12/21/[address] [facility] [address] [place] [address]
[2019-12-22 12:00] VITALS: BP 114/60
[2019-12-22 13:54] VITALS: Ht 188 cm; Wt 74.8 kg
--- NOTE | 2019-12-22 15:00 | NUR ---
I have reviewed this patient and I concur with the Shift Assessment completed by the Licensed Practical Nurse today this shift.
[2019-12-22 16:00] VITALS: BP 120/68
--- NOTE | 2019-12-22 18:32 | NUR ---
RESTING IN BED WITH EYES OPEN. C/O PAIN 12/27, INITIATED DILAUDID ENTEROSTOMAL THERAPY NURSE 0.2/02/20 NO S/S OF ACUTE DISTRESS NOTED. DENIES ANY NEEDS AT THIS TIME. CALL LIGHT IN REACH WILL CONTINUE TO MONITOR.
[2019-12-22 20:00] VITALS: BP 128/69
--- NOTE | 2019-12-22 21:39 | NUR ---
PATIENT VOMITTING WHEN ENTERING THE ROOM. PATIENT STATES IT WAS ACID REFLUX FROM DINNER. ADMINISTERED ZOFRAN. ASSISTED PATIENT IN CLEAN UP. DENIES FURTHER NEEDS AT NAUSEA AND VOMITTING RESOLVES. CALL LIGHT CLOSE. CPOC.
--- NOTE | 2019-12-23 00:13 | NUR ---
PATIENT VOMITTING AGAIN. 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 TURNED OFF INFUSION AND APPLIED COOL RAG TO PATIENT HEAD. ASSISTED WITH CLEAN UP. PROVIDED MOUTH WASH AND WATER. PATIENT FEELING BETTER. SPOKE WITH PATIENT ABOUT TRANSITIONING BACK TO PO PAIN MEDICINE. PATIENT AGREES AND VERBALIZES UMDERSTANDING. DENIES FURTHER NEEDS. CALL LIGHT CLOSE. CPOC.
--- NOTE | 2019-12-23 00:13 | NUR ---
PATIENT VOMITTING WHEN ENTERING THE ROOM. STATES THAT HE DOES NOT WANT THE DILAUDID ANYMORE THAT IT MAKES HIM SICK. TURNED OFF CHRONIC MANAGER. ALREADY GAVE PATIENT DOSE OF ZOFRAN AT 2239. SPOKE WITH PATIENT ABOUT TRANSITIONING BACK TO PAIN PILLS. PATIENT AGREES AND VERBALIZES UNDERSTANDING. CPOC.
[2019-12-23 04:00] VITALS: BP 129/62
[2019-12-23 06:17] LABS: HEMATOCRIT 28.7 % (42.0-54.0); HEMOGLOBIN 8.8 g/dL (13.5-17.5)
--- NOTE | 2019-12-23 07:15 | NUR ---
A&O RESTING IN BED WITH EYES OPEN. C/O PAIN 11/26, JESSICA TRINH GAVE NORCO @ 0700 FOR PAIN. NO S/S OF ACUTE DISTRESS NOTED. POD #2 RIGHT BKA REVISION, DRESSING C/D/I. SCD TO LEFT LEG. IV TO RIGHT FOREARM, D5 1/2 NS INFUSING @ 50ML/HR. SITE PATENT WITHOUT REDNESS OR SWELLING. DENIES ANY NEEDS AT THIS TIME. CALL LIGHT IN REACH. WILL CONTINUE TO MONITOR.
[2019-12-23 09:51] VITALS: BP 109/70
[2019-12-23] MEDS ORDERED: NICODERM CQ1 EAC1 TOPICAL (13:09)
[2019-12-23] MEDS ORDERED: ELIQUIS2.5 MG PO (13:11)
[2019-12-23] MEDS ORDERED: PERCOCET 10-321 EAC1 PO (13:13)
--- NOTE | 2019-12-23 13:28 | NUR ---
I have reviewed this patient and I concur with the Shift Assessment completed by the Licensed Practical Nurse today this shift.
--- NOTE | 2019-12-23 13:42 | MORECARE ---
CASE MANAGEMENT DISCHARGE SUMMARY PATIENT: MELITON HA UNIT: [id number] ADM DATE: 12/21/19 AGE: 59 : 64 SEX: M ROOM/BED: D.2240 AUTHOR: MANA MONTALVO PHYSICIAN: REFERRING PHYSICIAN: NATALY YEE MD DATE OF SERVICE: 12/23/19 Discharge Plan Patient Name: MELITON HA [facility] : 1960 Planned Disposition: Anticipated Discharge Date: Discharge Date: Expected LOS: Initial Reviewer: [email or web address] Initial Review Date: 12/23/2019 Generated: 12/23/19 2:41 pm DCPIA - Discharge Planning Initial Assessment Updated by [email or web address]: Iris Nathan on 12/23/19 1:41 pm * Is the patient Alert and Oriented? Yes * PCP NAKIA VANCE * Pharmacy [facility] * Preadmission Environment Home with Family * ADLs Independent * Other Equipment WHEEL CHAIR * Community resources currently utilized None * Additional services required to return to the preadmission environment? No * Can the patient safely return to the preadmission environment? Yes * Has this patient been hospitalized within the prior 30 days at any hospital? No Patient Name: MELITON HA Page [phone] at 1342 All edits/amendments must be made on the electronic document DICTATION DATE: 12/23/19 1341 SPORTS TEAM MARKETING INTERN: BILL 12/23/19 1341 RPT#: [id number] DC DATE: STATUS: ADM IN [facility] [address] [place] [address] END OF REPORT
--- NOTE | 2019-12-23 13:48 | MORECARE ---
CASE MANAGEMENT DISCHARGE SUMMARY PATIENT: MELITON HA UNIT: [id number] ADM DATE: 12/21/19 AGE: 59 : 64 SEX: M ROOM/BED: D.2240 AUTHOR: SELVIN,DOC PHYSICIAN: REFERRING PHYSICIAN: NATALY YEE MD DATE OF SERVICE: 12/23/19 Discharge Plan Patient Name: MELITON HA Facility: [facility]:[place] : 1960 Planned Disposition: Anticipated Discharge Date: Discharge Date: Expected LOS: Initial Reviewer: [email or web address] Initial Review Date: 12/23/2019 Generated: 12/23/19 2:47 pm Comments DCP- Discharge Planning Updated by [id number]: Iris Nathan on 12/23/19 12:[address] Patient Name: MELITON HA Admission Status: Elective Accout number: [id number] Admission Date: 12-21-2019 : 1960 Admission Diagnosis: Attending: NATALY YEE Current LOS: 2 Anticipated DC Date: Planned Disposition: Primary Insurance: [employer] CHOICE PPO MCR ADVANT Discharge Planning Comments: CM met with patient at bedside after explaining CM role and obtaining verbal consent. CM discussed availability / needs of home health, REHAB and medical equipment. PATIENT STATES NEEDS A WALKER. KO SIGNED FOR [facility]. IMM SIGNED. ORDER FAXED TO [facility] AND REQUESTED DELIVERY TO PATIENT'S HOME, PER PATIENT REQUEST. CM TO FOLLOW AND ASSIST NEEDED. Loan Officer: Iris Nathan DCPIA - Discharge Planning Initial Assessment Updated by [email or web address]: Iris Nathan on 12/23/19 1:41 pm * Is the patient Alert and Oriented? Yes * PCP NAKIA VANCE * Pharmacy [facility] * Preadmission Environment Home with Family * ADLs Independent * Other Equipment WHEEL CHAIR * Community resources currently utilized None * Additional services required to return to the preadmission environment? No * Can the patient safely return to the preadmission environment? Yes * Has this patient been hospitalized within the prior 30 days at any hospital? No External Providers External Provider: [facility] Next Contact Date: Service Request Date: Service Type: Resolution: Reviewer: Comments: Coverage Notice Reviewer: [email or web address] Claire Nathan Notice Issued Date-Time: 12/23/2019 13:44 Notice Type: IM Discharge Notice Notice Delivered To: Patient Relationship to Patient: Monitor Technician Name: Delivery Method: HAND - Hand Delivered Nelly Days: Prior Verbal Notification: Recipient Understood Notice: Yes Recipient Signature: Yes Med Rec Note Co-signed by Attending: Coverage Notice Comment: Reviewer: [email or web address] Claire Nathan Notice Issued Date-Time: 12/23/2019 13:44 Notice Type: Patient Choice Letter Notice Delivered To: Relationship to Patient: Monitor Technician Name: Delivery Method: - Nelly Days: Prior Verbal Notification: Recipient Understood Notice: Recipient Signature: Med Rec Note Co-signed by Attending: Coverage Notice Comment: BREE Yost DP export: 12/23/19 12:41 pm Patient Name: MELITON HA Page [phone] at 1348 All edits/amendments must be made on the electronic document DICTATION DATE: 12/23/19 1347 HIDE STRETCHER HAND: BILL 12/23/19 1347 RPT#: [id number] DC DATE: STATUS: ADM IN [facility] [address] [place] [address] END OF REPORT
--- NOTE | 2019-12-23 13:50 | NUR ---
IV THERAPY REMOVED FORM RIGHT FOREARM WITH TIP INTACT. DISCHARGE PAPERWORK GIVEN. PT VERBALIZED UNDERSTANDING. TRANSFERRED INTO WHEELCHAIR ON HIS OWN. TAKEN DOWNSTAIRS AND MET SON AT ANCHORAGE ENTRANCE.
--- NOTE | 2019-12-25 09:10 | MORECARE ---
CASE MANAGEMENT DISCHARGE SUMMARY PATIENT: MELITON HA UNIT: [id number] ADM DATE: 12/21/19 AGE: 59 : 64 SEX: M ROOM/BED: D.2240 AUTHOR: SELVIN,DOC PHYSICIAN: REFERRING PHYSICIAN: NATALY YEE MD DATE OF SERVICE: 12/25/19 Discharge Plan Patient Name: MELITON HA Facility: [facility]:[place] : 1960 Planned Disposition: Anticipated Discharge Date: Discharge Date: 12/23/2019 Expected LOS: Initial Reviewer: [email or web address] Initial Review Date: 12/23/2019 Generated: 12/25/19 10:10 am Comments DCP- Discharge Planning Updated by [email or web address]: Iris Nathan on 12/23/19 12:[address] Patient Name: MELITON HA Admission Status: Elective Accout number: [id number] Admission Date: 12-21-2019 : 1960 Admission Diagnosis: Attending: NATALY YEE Current LOS: 2 Anticipated DC Date: Planned Disposition: Primary Insurance: [employer] CHOICE PPO MCR ADVANT Discharge Planning Comments: CM met with patient at bedside after explaining CM role and obtaining verbal consent. CM discussed availability / needs of home health, REHAB and medical equipment. PATIENT STATES NEEDS A WALKER. KO SIGNED FOR [facility]. IMM SIGNED. ORDER FAXED TO [facility] AND REQUESTED DELIVERY TO PATIENT'S HOME, PER PATIENT REQUEST. CM TO FOLLOW AND ASSIST NEEDED. Embedded Software Developer: Iris Nathan DCPIA - Discharge Planning Initial Assessment Updated by [email or web address]: Iris Nathan on 12/23/19 1:41 pm * Is the patient Alert and Oriented? Yes * PCP NAKIA VANCE * Pharmacy [facility] * Preadmission Environment Home with Family * ADLs Independent * Other Equipment WHEEL CHAIR * Community resources currently utilized None * Additional services required to return to the preadmission environment? No * Can the patient safely return to the preadmission environment? Yes * Has this patient been hospitalized within the prior 30 days at any hospital? No Coverage Notice Reviewer: [email or web address] - Iris Nathan Notice Issued Date-Time: 12/23/2019 13:44 Notice Type: IM Discharge Notice Notice Delivered To: Patient Relationship to Patient: Compound Finisher Name: Delivery Method: HAND - Hand Delivered Nelly Days: Prior Verbal Notification: Recipient Understood Notice: Yes Recipient Signature: Yes Med Rec Note Co-signed by Attending: Coverage Notice Comment: Reviewer: [id number] Claire Nathan Notice Issued Date-Time: 12/23/2019 13:44 Notice Type: Patient Choice Letter Notice Delivered To: Relationship to Patient: Compound Finisher Name: Delivery Method: - Nelly Days: Prior Verbal Notification: Recipient Understood Notice: Recipient Signature: Med Rec Note Co-signed by Attending: Coverage Notice Comment: BREE Yost DP export: 12/23/19 12:48 pm Patient Name: MELITON HA Page 14455 at 0910 All edits/amendments must be made on the electronic document DICTATION DATE: 12/25/19909 AUTOMATIC DEVELOPER: BILL 12/25/19909 RPT#: [id number] DC DATE:12/23/19 STATUS: DIS IN [facility] [id number] [place] [address] END OF REPORT
== END 2019-12-23 13:52 | disposition home or self-care (01) | DRG 476 ==
LOC: D.SDCHOLD 12-21 06:56 → D.MS 12-21 06:56 → D.SDCHOLD 12-21 09:00 → D.MS 12-21 12:33
PROVIDERS: Anesthesiology; ADMIT Orthopaedic Surgery; ATTEND Orthopaedic Surgery
PROC: 0Y6H0Z2 Detachment at Right Lower Leg, Mid, Open Approach (ICD-10-PCS; principal; 2019-12-21 09:30)
DX: T87.89 Other complications of amputation stump (principal); Y83.9 Surgical procedure, unspecified as the cause of abnormal reaction of the patient, or of later complication, without mention of misadventure at the time of the procedure; Z72.0 Tobacco use